=== PATIENT | female | born 2000 | race Caucasian/White ===

== ENCOUNTER 2021-05-12 22:11 | Observation (INO) ==
[2021-05-12] MEDS ORDERED: SODIUM CHLORIDE 0.9% 1,000 ML IV STA (23:36)
[2021-05-12] MEDS ORDERED: ONDANSETRON 4 MG/2 ML VIAL IV STA (23:36)
[2021-05-13 00:34] LABS: Albumin 4.7 G/DL (3.4-5.0); Bilirubin,Total 0.7 MG/DL (0.20-1.00); Calcium 10.4 MG/DL (8.5-10.1); Potassium 2.8 MMOL/L (3.5-5.1); Total Protein 8.3 G/DL (6.4-8.2)
[2021-05-13 00:56] LABS: Basophils % 0.2 % (0.0-0.8); Hematocrit 40.4 VOL% (35.7-47.0); Hemoglobin 14.2 GM/DL (12.0-16.0); Immature Granulocytes % 0.5 %; Immature Granulocytes Absolute 0.09 #; Lymphocytes # 1.1 10*3/uL (1.4-4.0); Mean Corpuscular HGB Conc 35.1 GM/DL (32-36); Mean Platelet Volume 13.7 FL (9.6-12.0); Monocytes % 4.1 % (1.7-12.7); Neutrophils % 89.2 % (38.7-73.9); Platelet Count 241 T/CUMM (130-400); Red Cell Distribution Width 11.9 % (9.3-17.3); White Blood Count 18.6 T/CUMM (4-12)
[2021-05-13] MEDS ORDERED: POTASSIUM CHLORIDE RIDER 20 MEQ/100 ML PREMIX IV STA (01:40)
[2021-05-13] MEDS ORDERED: POTASSIUM CHLORIDE RIDER 20 MEQ/200 ML PREMIX IV STA (01:44)
[2021-05-13 01:49] LABS: Platelet Estimate Adequate
[2021-05-13 02:41] LABS: Bilirubin,Urine Negative (Negative); Blood, Urine Negative (Negative); Glucose,Urine (UA) 50 mg/dL (Negative); Hyaline Casts,Urine 4 /LPF (0-3); Ketones,Urine 80 mg/dL (Negative); Mucus,Urine Many /LPF (Occasional); Nitrite,Urine Negative (Negative); Protein,Urine 100 MG/DL; RBC,Urine 4 /HPF (0-4); Squamous Epithelial Cell,Urine Occasional /HPF (0-10); Urine Appearance CLEAR (Clear); Urine Color Amber (Yellow); Urine Specific Gravity 1.031 (1.001-1.035)
[2021-05-13] MEDS ORDERED: MAGNESIUM HYDROXIDE SUSP 30 ML UDCUP PO PRN (05:13)
[2021-05-13] MEDS ORDERED: BISACODYL 10 MG SUPP RECTAL PRN (05:13)
[2021-05-13] MEDS ORDERED: ACETAMINOPHEN 325 MG TABLET PO PRN (05:13)
[2021-05-13] MEDS: ONDANSETRON 4 MG/2 ML VIAL IV PRN (08:33)
[2021-05-13] MEDS: DOCUSATE SODIUM 100 MG CAPSULE PO SCH ×2 (08:54→21:33)
[2021-05-13] MEDS ORDERED: POTASSIUM BICARB EFFERVESCENT 25 MEQ TAB.EFF PO SCH (09:00)
[2021-05-13 09:04] LABS: Basophils % 0.2 % (0.0-0.8); Hematocrit 31.8 VOL% (35.7-47.0); Immature Granulocytes % 0.3 %; Immature Granulocytes Absolute 0.03 #; Lymphocytes # 2.4 10*3/uL (1.4-4.0); Mean Corpuscular HGB Conc 34.6 GM/DL (32-36); Mean Corpuscular Volume 86.9 FL (87-102); Mean Platelet Volume 12.8 FL (9.6-12.0); Monocytes % 6.9 % (1.7-12.7); Neutrophils % 72.6 % (38.7-73.9); Red Cell Distribution Width 12.1 % (9.3-17.3)
[2021-05-13 09:12] LABS: Platelet Count 187 T/CUMM (130-400); Red Blood Count 3.66 MC/CUMM (3.8-5.5); White Blood Count 11.8 T/CUMM (4-12)
[2021-05-13 09:21] LABS: Albumin 3.2 G/DL (3.4-5.0); Bilirubin,Total 0.6 MG/DL (0.20-1.00); Calcium 8.6 MG/DL (8.5-10.1); Osmolality,Calculated 270.8 MOS/KG (273-304); Total Protein 6.4 G/DL (6.4-8.2)
[2021-05-13] MEDS ORDERED: MULTIVITAMIN INJ 10 ML, FOLIC ACID INJ 1 MG, THIAMINE INJ 100 MG in SODIUM CHLORIDE 0.9... IV SCH (10:00)
[2021-05-13] MEDS ORDERED: POTASSIUM CHLORIDE RIDER 10 MEQ/100 ML PREMIX IV PRN (10:24)
[2021-05-13] MEDS ORDERED: POTASSIUM BICARB EFFERVESCENT 20 MEQ TAB.EFF PO SCH (11:00)
[2021-05-13] MEDS: METOCLOPRAMIDE 10 MG TABLET PO SCH ×3 (11:41→21:33)
[2021-05-13] MEDS: SODIUM CHLORIDE 0.9% 1,000 ML IV SCH (21:37)
[2021-05-14] MEDS: SODIUM CHLORIDE 0.9% 1,000 ML IV SCH (05:28)
[2021-05-14 06:15] LABS: Albumin 2.8 G/DL (3.4-5.0); Bilirubin,Total 0.6 MG/DL (0.20-1.00); Calcium 8.1 MG/DL (8.5-10.1); Osmolality,Calculated 270.7 MOS/KG (273-304); Potassium 3.2 MMOL/L (3.5-5.1); Total Protein 5.7 G/DL (6.4-8.2)
[2021-05-14] MEDS ORDERED: POTASSIUM CHLORIDE INJ 20 MEQ in LACTATED RINGERS 1,000 ML IV SCH (08:00)
[2021-05-14] MEDS: METOCLOPRAMIDE 10 MG TABLET PO SCH ×2 (09:20→12:56)
[2021-05-14] MEDS: DOCUSATE SODIUM 100 MG CAPSULE PO SCH (10:31)
[2021-05-14 11:25] VITALS: BP 110/60
[2021-05-14] MEDS: ONDANSETRON 4 MG/2 ML VIAL IV PRN (13:01)
== END 2021-05-14 14:55 | disposition home or self-care (01) ==
LOC: N.ED 22:11 → N.EDINP 22:11 → N.OB 22:11
PROVIDERS: ADMIT Obstetrics & Gynecology; ATTEND Obstetrics & Gynecology

== ENCOUNTER 2021-12-07 13:23 | Inpatient (IN) ==
[2021-12-07] MEDS ORDERED: MEPERIDINE 50 MG/1 ML VIAL IV PRN (14:01)
[2021-12-07] MEDS ORDERED: OXYTOCIN/LR 20 UNIT/1,000 ML BAG IV ONE ×2 (14:01→21:33)
[2021-12-07] MEDS ORDERED: miSOPROStoL 200 MCG TABLET RECTAL PRN (14:01)
[2021-12-07] MEDS ORDERED: METHYLERGONOVINE 0.2 MG/1 ML AMP IM PRN (14:01)
[2021-12-07] MEDS ORDERED: BUTORPHANOL 2 MG/ML VIAL IV PRN (14:01)
[2021-12-07] MEDS ORDERED: TRANEXAMIC ACID 1,000 MG in SODIUM CHLORIDE 0.9% 100 ML IV PRN (14:01)
[2021-12-07] MEDS ORDERED: CARBOPROST TROMETHAMINE 250 MCG/ML AMP IM PRN (14:01)
[2021-12-07] MEDS ORDERED: hydrOXYzine HCL 25 MG/1 ML VIAL IM PRN (14:14)
[2021-12-07] MEDS ORDERED: diphenhydrAMINE 50 MG/1 ML VIAL IV PRN (14:14)
[2021-12-07] MEDS ORDERED: CITRIC ACID/SODIUM CITRATE 30 ML UDCUP PO ONE (14:14)
[2021-12-07] MEDS ORDERED: PROMETHAZINE 25 MG/1 ML VIAL IM PRN (14:14)
[2021-12-07] MEDS ORDERED: ePHEDrine 50 MG/ML VIAL IV PRN (14:14)
[2021-12-07] MEDS ORDERED: NALOXONE 0.4 MG/ML VIAL IV PRN (14:14)
[2021-12-07] MEDS ORDERED: FAMOTIDINE 20 MG/2 ML VIAL IV ONE (14:14)
[2021-12-07 14:19] LABS: Basophils # 0.1 10*3/uL (0.0-0.2); Basophils % 0.2 % (0.0-0.8); Hematocrit 34.4 VOL% (35.7-47.0); Hemoglobin 12.1 GM/DL (12.0-16.0); Immature Granulocytes % 1.1 %; Immature Granulocytes Absolute 0.25 #; Lymphocytes # 1.8 10*3/uL (1.4-4.0); Lymphocytes % 7.7 % (21.3-54.2); Mean Corpuscular HGB Conc 35.2 GM/DL (32-36); Mean Corpuscular Volume 85.6 FL (87-102); Mean Platelet Volume 11.7 FL (9.6-12.0); Monocytes # 0.7 10*3/uL (0.11-0.8); Monocytes % 2.9 % (1.7-12.7); Neutrophils % 88.1 % (38.7-73.9); Platelet Count 239 T/CUMM (130-400); Red Blood Count 4.02 MC/CUMM (3.8-5.5); Red Cell Distribution Width 12.9 % (9.3-17.3); White Blood Count 22.8 T/CUMM (4-12)
[2021-12-07] MEDS ORDERED: fentaNYL 2 MCG/ROPIV 0.2% EPID 100 ML EPIDURAL SCH (14:30)
[2021-12-07] MEDS ORDERED: OXYTOCIN/LR 20 UNIT/1,000 ML BAG IV SCH (14:30)
[2021-12-07] MEDS: LACTATED RINGERS 1,000 ML IV SCH ×3 (14:30→19:50)
[2021-12-07] MEDS: ONDANSETRON 4 MG/2 ML VIAL IV PRN (14:33)
[2021-12-07 14:39] LABS: Anisocytosis Slight; Lymphocytes 9 % (20-55); Total Cells Counted 100
[2021-12-07 14:40] LABS: Hypochromia Slight; Platelet Estimate Adequate
[2021-12-07] MEDS ORDERED: ALUMINUM/MAGNES/SIMETH MAX STR 30 ML UDCUP PO PRN (16:34)
[2021-12-07] MEDS ORDERED: SODIUM CHLORIDE 0.9% 0 ML IV ONE (20:49)
[2021-12-07] MEDS ORDERED: miSOPROStoL 200 MCG TABLET ONE (20:49)
[2021-12-07] MEDS ORDERED: TRANEXAMIC ACID 1,000 MG/10 ML VIAL ONE (20:49)
[2021-12-07] MEDS ORDERED: CARBOPROST TROMETHAMINE 250 MCG/ML AMP IM ONE (20:50)
[2021-12-07] MEDS ORDERED: METHYLERGONOVINE 0.2 MG/1 ML AMP ONE (20:50)
[2021-12-07 21:30] LABS: Cord Arterial Blood HCO3 20.1 MMOL/L
[2021-12-07] MEDS ORDERED: BENZOCAINE 20%/MENTHOL 0.5% SPRAY 56 GM CAN TOP PRN (21:33)
[2021-12-07] MEDS ORDERED: RHO(D) IMMUNE GLOBULIN 300 MCG SYRINGE IM ONE (21:33)
[2021-12-07] MEDS ORDERED: WITCH HAZEL PADS 100/JAR TOP PRN (21:33)
[2021-12-07] MEDS ORDERED: MEASLES/MUMPS/RUBELLA VACCINE 0.5 ML VIAL SUBCUT ONE (21:33)
[2021-12-07] MEDS ORDERED: BISACODYL 10 MG SUPP RECTAL PRN (21:33)
[2021-12-07] MEDS ORDERED: DIPH/TET/ACEL PERT BOOSTER VACCINE 0.5 ML VIAL IM ONE (21:33)
[2021-12-07] MEDS ORDERED: ONDANSETRON 4 MG/2 ML VIAL IV PRN (21:33)
[2021-12-07] MEDS ORDERED: HYDROCORTISONE 2.5% RECTAL CREAM 30 GM TUBE TOP PRN (21:33)
[2021-12-07] MEDS ORDERED: LANOLIN 50% CREAM 0.3 OZ TUBE TOP PRN (21:33)
[2021-12-07] MEDS ORDERED: ACETAMINOPHEN 325 MG TABLET PO PRN (21:33)
[2021-12-07] MEDS ORDERED: oxyCODONE/ACETAMINOPHEN 5-325 MG TABLET PO PRN (21:33)
[2021-12-07 21:49] LABS: Cord Venous Blood HCO3 20.5 MMOL/L; Cord Venous Blood PCO2 46.2 MMHG; Cord Venous Blood PO2 21.5
[2021-12-07] MEDS: IBUPROFEN 800 MG TABLET PO PRN (23:14)
[2021-12-08] MEDS: ONDANSETRON 4 MG/2 ML VIAL IV PRN (00:26)
[2021-12-08] MEDS ORDERED: oxyCODONE/ACETAMINOPHEN 5-325 MG TABLET PO ONE (01:41)
[2021-12-08 03:27] LABS: Basophils % 0.1 % (0.0-0.8); Hematocrit 31.2 VOL% (35.7-47.0); Hemoglobin 10.7 GM/DL (12.0-16.0); Immature Granulocytes % 0.7 %; Immature Granulocytes Absolute 0.15 #; Lymphocytes # 2.3 10*3/uL (1.4-4.0); Lymphocytes % 11.5 % (21.3-54.2); Mean Corpuscular HGB Conc 34.3 GM/DL (32-36); Mean Corpuscular Volume 87.9 FL (87-102); Mean Platelet Volume 11.6 FL (9.6-12.0); Neutrophils % 82.7 % (38.7-73.9); Platelet Count 188 T/CUMM (130-400); Red Blood Count 3.55 MC/CUMM (3.8-5.5); White Blood Count 20.1 T/CUMM (4-12)
[2021-12-08 03:47] LABS: Lymphocytes 12 % (20-55); Total Cells Counted 100
[2021-12-08 03:48] LABS: Hypochromia Slight; Platelet Estimate Adequate
[2021-12-08 04:00] LABS: Albumin 2.3 G/DL (3.4-5.0); Bilirubin,Total 0.5 MG/DL (0.20-1.00); Osmolality,Calculated 268.8 MOS/KG (273-304); Potassium 3.4 MMOL/L (3.5-5.1); Total Protein 6.2 G/DL (6.4-8.2)
[2021-12-08 04:28] LABS: HIV Antigen/Antibody Result Nonreactive (Nonreactive); Hepatitis B Surface Ag Quant < 0.10 Index; Hepatitis B Surface Ag Result Non-Reactive (NonReactive); Rubella Antibody IgG Result Reactive (NonReactive)
[2021-12-08] MEDS: POTASSIUM CHLORIDE 20 MEQ TABLET PO PRN ×3 (05:38→12:05)
[2021-12-08] MEDS: IBUPROFEN 800 MG TABLET PO PRN ×2 (05:38→16:32)
[2021-12-08] MEDS: DOCUSATE SODIUM 100 MG CAPSULE PO SCH ×2 (09:16→20:48)
[2021-12-08] MEDS: oxyCODONE/ACETAMINOPHEN 5-325 MG TABLET PO PRN ×3 (11:18→22:32)
[2021-12-09] MEDS: oxyCODONE/ACETAMINOPHEN 5-325 MG TABLET PO PRN (06:48)
[2021-12-09] MEDS: DOCUSATE SODIUM 100 MG CAPSULE PO SCH (08:22)
[2021-12-09 09:12] VITALS: BP 121/72
== END 2021-12-09 11:44 | disposition home or self-care (01) | DRG 560 ==
LOC: N.LDOUT 13:23 → N.LD 13:26 → N.OB 12-08 00:15
PROVIDERS: ADMIT Obstetrics & Gynecology; ATTEND Obstetrics & Gynecology